=== PATIENT | female | born 1970 | race Caucasian/White ===

== ENCOUNTER 2018-06-11 20:46 | Emergency (ER) | payer OTHER ==
[~2018-06-11] VITALS: Ht 160 cm; Wt 93.4 kg
[2018-06-11 20:56] VITALS: Ht 160 cm; Wt 93.4 kg
[2018-06-11 21:32] LABS: BASOPHIL % 0.9 % (0-2); PLATELET COUNT 251 x10^3mcL (130-400); RED CELL DISTRIBUTION WIDTH 14.1 % (11.5-14.5)
[2018-06-11 21:40] LABS: CHLORIDE SERUM 106 mmol/L (98-107); CREATININE SERUM 0.6 mg/dL (0.6-1.0); GFR1 > 60 mL/min; GLUCOSE SERUM 116 mg/dL (74-106); POTASSIUM SERUM 3.7 mmol/L (3.5-5.1); SODIUM SERUM 142 mmol/L (136-145)
[2018-06-11 21:44] LABS: ALBUMIN 3.9 g/dL (3.4-5.0); ALKALINE PHOSPHATASE 143 U/L (46-116); ALT/SGPT 118 U/L (14-59); AST/SGOT 61 U/L (15-37); BILIRUBIN TOTAL 0.36 mg/dL (0.20-1.00)
[2018-06-11 21:45] LABS: CHOLESTEROL 222 mg/dL (<200); HDL CHOLESTEROL 34 mg/dL (40-60)
[2018-06-11 23:26] VITALS: BP 165/105
== END 2018-06-11 23:51 | disposition home or self-care (01) ==
LOC: ED 20:46
PROVIDERS: Emergency Medicine
DX: R51 Headache (principal); I10 Essential (primary) hypertension
CPT/HCPCS: J2405; J3010; J3490; Q0092

== ENCOUNTER 2018-06-17 17:24 | Emergency (ER) | payer OTHER ==
[~2018-06-17] VITALS: Ht 160 cm; Wt 91.2 kg
[2018-06-17 17:54] VITALS: Ht 160 cm; Wt 91.2 kg
[2018-06-17 18:25] LABS: BASOPHIL % 0.5 % (0-2); PLATELET COUNT 290 x10^3mcL (130-400); RED CELL DISTRIBUTION WIDTH 13.6 % (11.5-14.5)
[2018-06-17 18:30] LABS: CALCIUM 9.4 mg/dL (8.5-10.1); CARBON DIOXIDE 29.7 mmol/L (21-32); CHLORIDE SERUM 100 mmol/L (98-107); CREATININE SERUM 0.6 mg/dL (0.6-1.0); GFR1 > 60 mL/min; GLUCOSE SERUM 124 mg/dL (74-106); POTASSIUM SERUM 3.4 mmol/L (3.5-5.1); SODIUM SERUM 139 mmol/L (136-145)
[2018-06-17 18:35] LABS: ALBUMIN 4.4 g/dL (3.4-5.0); ALKALINE PHOSPHATASE 135 U/L (46-116); ALT/SGPT 125 U/L (14-59); AST/SGOT 75 U/L (15-37); BILIRUBIN TOTAL 0.64 mg/dL (0.20-1.00)
[2018-06-17 18:38] LABS: TOTAL PROTEIN, SERUM 8.6 g/dL (6.4-8.2)
[2018-06-17 20:14] VITALS: BP 137/85
== END 2018-06-17 20:14 | disposition home or self-care (01) ==
LOC: ED 17:24
PROVIDERS: Emergency Medicine
DX: R51 Headache (principal); I10 Essential (primary) hypertension
CPT/HCPCS: J1885; J2765

== ENCOUNTER 2018-09-26 12:58 | Emergency (ER) | payer MEDICAID ==
[~2018-09-26] VITALS: Ht 160 cm; Wt 95.3 kg
[2018-09-26 13:05] VITALS: Ht 160 cm; Wt 95.3 kg
[2018-09-26 16:07] VITALS: BP 120/82
== END 2018-09-26 16:05 | disposition home or self-care (01) ==
LOC: ED 12:58
DX: S61.102A Unspecified open wound of left thumb with damage to nail, initial encounter (principal); I10 Essential (primary) hypertension; X50.1XXA Overexertion from prolonged static or awkward postures, initial encounter; Y93.89 Activity, other specified; Y92.89 Other specified places as the place of occurrence of the external cause; Y99.8 Other external cause status

== ENCOUNTER 2019-01-22 16:20 | Emergency (ER) | payer MEDICAID ==
[~2019-01-22] VITALS: Ht 160 cm; Wt 98.9 kg
[2019-01-22 16:35] VITALS: Ht 160 cm; Wt 98.9 kg
[2019-01-22 18:45] VITALS: BP 120/71
== END 2019-01-22 18:45 | disposition home or self-care (01) ==
LOC: ED 16:20
DX: B34.9 Viral infection, unspecified (principal); I10 Essential (primary) hypertension
CPT/HCPCS: J1885

== ENCOUNTER 2019-01-26 17:59 | Emergency (ER) | payer MEDICAID ==
[~2019-01-26] VITALS: Ht 160 cm; Wt 99.3 kg
[2019-01-26 18:16] VITALS: Ht 160 cm; Wt 99.3 kg
[2019-01-26 21:16] VITALS: BP 122/81
== END 2019-01-26 21:16 | disposition home or self-care (01) ==
LOC: ED 17:59
DX: J06.9 Acute upper respiratory infection, unspecified (principal); I10 Essential (primary) hypertension
CPT/HCPCS: Q0092

== ENCOUNTER 2019-02-05 16:41 | Emergency (ER) | payer MEDICAID ==
[~2019-02-05] VITALS: Ht 160 cm; Wt 99.8 kg
[2019-02-05 16:50] VITALS: Ht 160 cm; Wt 99.8 kg
[2019-02-05 18:50] LABS: BASOPHIL % 0.4 % (0-2); PLATELET COUNT 271 x10^3mcL (130-400); RED CELL DISTRIBUTION WIDTH 13.6 % (11.5-14.5)
[2019-02-05 18:57] LABS: CALCIUM 8.7 mg/dL (8.5-10.1); CARBON DIOXIDE 29.5 mmol/L (21-32); CHLORIDE SERUM 105 mmol/L (98-107); CREATININE SERUM 0.7 mg/dL (0.6-1.0); GFR1 > 60 mL/min; GLUCOSE SERUM 105 mg/dL (74-106); POTASSIUM SERUM 3.8 mmol/L (3.5-5.1); SODIUM SERUM 142 mmol/L (136-145)
[2019-02-05 19:05] LABS: ALBUMIN 3.8 g/dL (3.4-5.0); ALKALINE PHOSPHATASE 107 U/L (46-116); ALT/SGPT 66 U/L (14-59); AST/SGOT 34 U/L (15-37); BILIRUBIN TOTAL 0.5 mg/dL (0.20-1.00); TOTAL PROTEIN, SERUM 7.5 g/dL (6.4-8.2)
[2019-02-05 21:15] VITALS: BP 110/69
== END 2019-02-05 21:15 | disposition home or self-care (01) ==
LOC: ED 16:41
PROVIDERS: Emergency Medicine
DX: J18.9 Pneumonia, unspecified organism (principal); I10 Essential (primary) hypertension
CPT/HCPCS: 36415; 83880; J7512; Q0092

== ENCOUNTER 2020-01-27 13:23 | Emergency (ER) | payer MEDICAID ==
[~2020-01-27] VITALS: Ht 160 cm; Wt 93.4 kg
[2020-01-27 14:00] VITALS: Ht 160 cm; Wt 93.4 kg
[2020-01-27 14:56] VITALS: BP 113/78
[2020-01-27 14:56] LABS: UA SPECIFIC GRAVITY >=1.030 (1.005-1.035); microscopic required? YES; urine erythrocyte 3+ (NEGATIVE)
== END 2020-01-27 14:56 | disposition home or self-care (01) ==
LOC: ED 13:23
PROVIDERS: Emergency Medicine
DX: N39.0 Urinary tract infection, site not specified (principal); I10 Essential (primary) hypertension
CPT/HCPCS: 87491; 87591

== ENCOUNTER 2020-03-08 14:47 | Emergency (ER) | payer MEDICAID, SELFPAY ==
[~2020-03-08] VITALS: Ht 160 cm; Wt 90.7 kg
[2020-03-08 14:49] VITALS: BP 128/87; Ht 160 cm; Wt 90.7 kg
== END 2020-03-08 18:15 | disposition home or self-care (01) ==
LOC: ED 14:47
DX: U07.1 COVID-19 (principal); J06.9 Acute upper respiratory infection, unspecified; I10 Essential (primary) hypertension
CPT/HCPCS: U0003

== ENCOUNTER 2020-03-24 15:23 | Emergency (ER) | payer MEDICAID ==
[~2020-03-24] VITALS: Ht 160 cm; Wt 97.5 kg
[2020-03-24 15:29] VITALS: Ht 160 cm; Wt 97.5 kg
[2020-03-24 17:27] VITALS: BP 106/70
== END 2020-03-24 17:27 | disposition home or self-care (01) ==
LOC: ED 15:23
DX: U07.1 COVID-19 (principal); I10 Essential (primary) hypertension

== ENCOUNTER 2020-04-30 17:34 | Emergency (ER) | payer MEDICAID, SELFPAY ==
[~2020-04-30] VITALS: Ht 160 cm; Wt 74.8 kg
[2020-04-30 17:35] VITALS: Ht 160 cm; Wt 74.8 kg
[2020-04-30 18:57] LABS: BASOPHIL % 0.8 % (0.2-1.3); PLATELET COUNT 256 x10^3mcL (179-408); RED CELL DISTRIBUTION WIDTH 13.5 % (12.3-17.7)
[2020-04-30 19:55] LABS: ALBUMIN 4.1 g/dL (3.4-5.0); CALCIUM 8.9 mg/dL (8.5-10.1); CREATININE SERUM 1.1 mg/dL (0.6-1.0); POTASSIUM SERUM 3.4 mmol/L (3.5-5.1)
[2020-04-30 20:04] VITALS: BP 120/80
[2020-04-30 20:07] LABS: BILIRUBIN TOTAL 0.37 mg/dL (0.20-1.00); CARBON DIOXIDE 26.9 mmol/L (21-32); TOTAL PROTEIN, SERUM 7.8 g/dL (6.4-8.2)
== END 2020-04-30 20:04 | disposition home or self-care (01) ==
LOC: ED 17:34
PROVIDERS: Emergency Medicine
DX: R06.02 Shortness of breath (principal); I10 Essential (primary) hypertension; Z20.828 Contact with and (suspected) exposure to other viral communicable diseases
CPT/HCPCS: 85378